=== PATIENT | male | born 1975 | race Caucasian/White ===

== ENCOUNTER → 2017-07-08 | Outpatient (CLI) | payer BC ==
--- NOTE | 2017-07-08 09:52 | Diagnostic Imaging Report ---
INDICATION: Left upper chest pain. PA and lateral views of the chest are obtained. COMPARISON: No previous study is available for comparison at this time. FINDINGS: Heart size and pulmonary vasculature are within normal limits, and the lungs are clear, bilaterally. IMPRESSION: Unremarkable chest. Dictated by: Dictated on workstation # [id number]
== END ==
LOC: RAD 09:32
PROVIDERS: ATTEND Family Medicine
DX: R07.89 Other chest pain (principal); R06.00 Dyspnea, unspecified
CPT/HCPCS: 71046

== ENCOUNTER → 2017-12-10 | Outpatient (CLI) | payer BC ==
--- NOTE | 2017-12-10 17:33 | Diagnostic Imaging Report ---
EXAM: CHEST PA/LAT (2 VIEW) INDICATION: PERSISTENT COUGH, DECREASED BREATH SOUNDS IN LEFT UPPER LUNG FIELD COMPARISON: Chest radiograph 07/08/2017. FINDINGS: Normal heart size and pulmonary vascularity. No focal pulmonary opacity, pleural effusion or pneumothorax. No acute osseous findings. No significant change. IMPRESSION: Negative chest. Dictated by: Dictated on workstation # [id number]
== END ==
LOC: RAD 16:59
PROVIDERS: ATTEND Family Medicine
DX: R05 Cough (principal); R09.89 Other specified symptoms and signs involving the circulatory and respiratory systems
CPT/HCPCS: 71046

== ENCOUNTER → 2017-12-30 | Outpatient (CLI) | payer BC ==
[~2017-12-30] MED LIST: IOHEXOL 350 MG/ML 100 ML (OMNIPAQUE 350) VIAL IV ONE; NS 250 ML (IVPB) BAG IV ONE
[2017-12-30 11:12] LABS: ALANINE AMINOTRANSFERASE 16 U/L (0-55); ALBUMIN 4.3 GM/DL (3.2-4.5); ALKALINE PHOSPHATASE 48 U/L (40-136); BILIRUBIN,TOTAL 0.6 MG/DL (0.1-1.0); BUN/CREATININE RATIO 15; CALCIUM 9.7 MG/DL (8.5-10.1); CARBON DIOXIDE 27 MMOL/L (21-32); CHLORIDE 107 MMOL/L (98-107); CREATININE SERUM 1.01 MG/DL (0.60-1.30); GFR ESTIMATED > 60; GLUCOSE 95 MG/DL (70-105); POTASSIUM 4.6 MMOL/L (3.6-5.0); SODIUM 140 MMOL/L (135-145); TOTAL PROTEIN 7.4 GM/DL (6.4-8.2)
--- NOTE | 2017-12-30 15:29 | Diagnostic Imaging Report ---
PROCEDURE: CT abdomen and pelvis with contrast. TECHNIQUE: Multiple contiguous axial images were obtained through the abdomen and pelvis after administration of intravenous contrast. INDICATION: Pelvic pain, weight loss. There are no prior studies available for comparison. FINDINGS: The liver is homogeneous and not enlarged. The spleen, pancreas, adrenals, kidneys, gallbladder, aorta and inferior vena cava are unremarkable for an acute abnormality. The stomach is partially filled with fluid and consequently difficult to assess. The appendix was visualized and is not abnormally thickened. There is no pelvic mass or free fluid collection noted. The prostate gland is not enlarged. The wall of the bladder does seem thickened. This is more likely due to incomplete distention than to cystitis. Even so, clinical followup is recommended. The bone windows show no evidence for a fracture or for a destructive lesion. There is degenerative disc and bony disease at L5-S1. The lung bases are clear. IMPRESSION: There is no evidence for an acute abnormality of the abdomen or pelvis. There is no sign of a mass lesion either. Dictated by: Dictated on workstation # [id number]
== END ==
LOC: RAD 10:26
PROVIDERS: ATTEND Family Medicine
DX: R10.31 Right lower quadrant pain (principal); R63.4 Abnormal weight loss
CPT/HCPCS: 36415; 74177; 80053; 84153

== ENCOUNTER 2018-10-12 21:54 | Emergency (ER) | payer BC ==
[~2018-10-12] VITALS: Ht 177.8 cm; Wt 83.9 kg
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
[2018-10-12] MEDS ORDERED: KETOROLAC 30 MG/ML VIAL IVP ONE (22:15)
[2018-10-12] MEDS ORDERED: LIDOCAINE 1% INJ 20 ML 20 ML VIAL INJ ONE (22:15)
[2018-10-12] MEDS ORDERED: FLUORESCEIN (FLUOR-I-STRIPS) 1 MG STRP OU ONE (22:30)
[2018-10-12] MEDS ORDERED: TETRACAINE 0.5% OPHTH SOLN 4 ML BTL (SINGLE DOSE ONLY) OU ONE (22:30)
[2018-10-12] MEDS ORDERED: TETANUS,DIPTH,PERTUSS P/F (BOOSTRIX) 0.5 ML VIAL IM ONE (22:30)
--- NOTE | 2018-10-12 23:00 | NUR ---
PT REPORT RECIEVED FROM WAYNE VILLARREAL. ASSUMED PRIMARY NURSE ROLE.
--- NOTE | 2018-10-12 23:05 | NUR ---
report to adrienne herrera for continued care.
[2018-10-13] MEDS ORDERED: SULF1TAB35 PO
[2018-10-13] MEDS ORDERED: ONDA4TAB11 PO
--- NOTE | 2018-10-13 | NUR ---
7 SUTURES USING 4-[address] CASTAÑEDA TO RIGHT FOREHEAD.
[2018-10-13] MEDS ORDERED: ARTIFICIAL TEARS OINT (LACRI-LUBE) 3.5 GM TUBE OU STA (00:03)
[2018-10-13 00:20] VITALS: BP 105/87
[2018-10-13] MEDS ORDERED: ARTIFICIAL TEARS OINT (LACRI-LUBE) 3.5 GM TUBE ONE (00:26)
--- NOTE | 2018-10-17 09:25 | Diagnostic Imaging Report ---
PROCEDURE: CT head, face, and cervical spine without contrast. TECHNIQUE: Multiple contiguous axial images were obtained through the head, neck, and facial bones without the use of intravenous contrast. Sagittal and coronal reformations through the cervical spine and facial bones were also performed. Auto Exposure Controls were utilized during the CT exam to meet ALARA standards for radiation dose reduction. INDICATION: Facial laceration, injury. COMPARISON: None. FINDINGS: Images were submitted for review on 10/17/2018. CT HEAD: The ventricles and cortical sulci appear age-appropriate. There is no midline shift or mass effect. No acute intracranial hemorrhage is seen. There is no CT evidence of acute territorial ischemia. The calvarium appears intact. There is edema and laceration in the soft tissues of the right frontal scalp. CT FACE: The pterygoid plates are intact. The zygomatic arches are intact. The mandible is intact. There are small paranasal cysts in the bilateral maxillary sinuses; otherwise, the paranasal sinuses appear clear. The globes are intact. The orbits are unremarkable. There is right supraorbital edema in the soft tissues. There is fluid and sclerosis in the right mastoid air cells. CT CERVICAL SPINE: There is trace retrolisthesis at C3-4. Mild degenerative changes are seen at C3-4, C5-6, and C6-7. No acute fracture is seen. There is bony union across the right C2-3 facet. No hyperdense fluid collections or bony fragments are seen in the spinal canal. The soft tissues about the cervical spine are otherwise unremarkable. IMPRESSION: 1. Soft tissue edema and laceration of the right frontal scalp. No calvarial fracture or intracranial hemorrhage is seen. 2. No facial fractures are seen. 3. Mild degenerative changes in the cervical spine with no acute osseous abnormality seen. 4. Findings suggestive of chronic right mastoiditis. Dictated by: Dictated on workstation # [id number]
== END 2018-10-13 00:39 | disposition home or self-care (01) ==
LOC: EDUNIT# 21:54 → ER 21:55
DX: S06.0X0A Concussion without loss of consciousness, initial encounter (principal); S01.81XA Laceration without foreign body of other part of head, initial encounter; S05.01XA Injury of conjunctiva and corneal abrasion without foreign body, right eye, initial encounter; W34.09XA Accidental discharge from other specified firearms, initial encounter
CPT/HCPCS: 70450; 70486; 72125; 90715

== ENCOUNTER 2018-10-21 09:42 | Emergency (ER) | payer BC ==
[~2018-10-21 09:42] MED LIST changes: -IOHEXOL 350 MG/ML 100 ML (OMNIPAQUE 350) VIAL IV ONE; -NS 250 ML (IVPB) BAG IV ONE; +ONDA4TAB11 PO; +SULF1TAB35 PO
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
[2018-10-21 10:25] VITALS: BP 129/93
== END 2018-10-21 10:00 | disposition home or self-care (01) ==
LOC: EDUNIT# 09:42 → ER 09:43
DX: S01.81XD Laceration without foreign body of other part of head, subsequent encounter (principal); X08.8XXD Exposure to other specified smoke, fire and flames, subsequent encounter

== ENCOUNTER → 2021-06-26 | Outpatient (CLI) | payer BC ==
[~2021-06-26] MED LIST changes: +RT-ALBUTEROL SULF 2.5 MG/3 ML PRE-MIX VIAL INH ONE; -SULF1TAB35 PO; +SULF1TAB38 PO
== END ==
LOC: RT 08:00
PROVIDERS: ATTEND Family Medicine
DX: R06.02 Shortness of breath (principal); R06.00 Dyspnea, unspecified
CPT/HCPCS: 94060; 94726; 94729

== ENCOUNTER → 2022-12-16 | Outpatient (CLI) | payer BC ==
[~2022-12-16] MED LIST changes: -RT-ALBUTEROL SULF 2.5 MG/3 ML PRE-MIX VIAL INH ONE
--- NOTE | 2022-12-16 12:39 | Diagnostic Imaging Report ---
TECHNIQUE: Live grayscale and color Doppler ultrasound was performed of the left groin. REASON FOR EXAM: Left groin pain. Mass. COMPARISON: None. FINDINGS: Lymph nodes are seen in the left groin, the largest measuring 2.4 x 0.6 cm. The other lymph node measures 1.6 x 0.7 cm. These demonstrate normal reniform shape and preserved fatty hilum. The left common femoral vein and artery are patent and have a normal appearance. IMPRESSION: 1. Mildly prominent left inguinal lymph nodes, likely reactive. No evidence of mass or fluid collection in the left groin. Dictated by: Dictated on workstation # [id number]
== END ==
LOC: RAD 09:42
PROVIDERS: ATTEND Family Medicine
DX: R19.03 Right lower quadrant abdominal swelling, mass and lump (principal); R10.32 Left lower quadrant pain
CPT/HCPCS: 76881

== ENCOUNTER → 2023-03-15 | Outpatient (CLI) | payer BC ==
[~2023-03-15] MED LIST changes: +IOHEXOL 350 MG/ML 100 ML (OMNIPAQUE 350) VIAL IV ONE; +NS 100 ML (IVPB) BAG IV ONE
--- NOTE | 2023-03-15 16:10 | Diagnostic Imaging Report ---
EXAMINATION: CT abdomen and pelvis with intravenous contrast. TECHNIQUE: Multiple contiguous axial images were obtained through the abdomen and pelvis after the uneventful administration of intravenous contrast. All CT scans use one or more of the following dose optimizing techniques: automated exposure control, MA and/or KvP adjustment based on patient size and exam type or iterative reconstruction. HISTORY: Left lower quadrant lymphadenopathy. COMPARISON: 12/30/2017 FINDINGS: Lung bases: The lung bases are clear. Solid organs: The liver is normal without focal lesion. The gallbladder is normal. There is no biliary ductal dilation. Pancreas is normal. Spleen is normal. Adrenal glands are normal. The kidneys are normal without hydronephrosis. Bowel: The stomach and small bowel are normal without obstruction. The colon is normal. The appendix is normal. Peritoneum: There is no intraperitoneal free fluid or free air. No suspicious lymphadenopathy. Vasculature: Normal without aneurysm. Musculoskeletal: Degenerative changes of the spine without suspicious osseous lesion or compression fracture. Pelvis: The prostate gland is normal. The urinary bladder is normal. IMPRESSION: 1. No acute abnormality in the abdomen or pelvis. Dictated by: Dictated on workstation # [id number]
== END ==
LOC: RAD 15:08
PROVIDERS: ATTEND Family Medicine
DX: R59.0 Localized enlarged lymph nodes (principal)
CPT/HCPCS: 74177